=== PATIENT | female | born 1975 | race Caucasian/White ===

== ENCOUNTER 2016-10-30 23:27 | Emergency (ER) | payer MEDICAID ==
[2016-10-30 23:40] VITALS: RESP 16
--- NOTE | 2016-10-31 00:03 | EDPHY ---
H & P Stated Complaint: syncopal episode at [employer] concert Time Seen by Provider: 10/30/16 23:47 HPI/ROS: HPI The patient presents with episode of ALOC which occurred just prior to arrival while she was at a rock concert. She has been traveling extensively over the last 5 days, attending many concert. Today she flew here from [place]. She has not eaten much today. She has been drinking alcohol and smoking marijuana. She was dancing outside in 80 degree heat. She was sitting down drinking some water when she gets began to feel lightheaded and lost consciousness. Her friends noticed that she shook a bit while she was unconscious. This lasted for about 2 minutes, afterwards she was "out of it" for few minutes. She was able to walk up 50 stairs 2 the medical tent were she continued to feel dizzy and thus she came in. She describes the dizziness as lightheadedness. She has not had any palpitations, chest pain, shortness of breath. She does have prior history of syncope. REVIEW OF SYSTEMS Constitutional: No fever, no chills. Eyes: No discharge. ENT: No sore throat. Cardiovascular: No chest pain, no palpitations. Respiratory: No cough, no shortness of breath. Gastrointestinal: No abdominal pain, no vomiting. Genitourinary: No hematuria. Musculoskeletal: No back pain. Skin: No rashes. Neurological: No headache. PMHx: Hypothyroidism Soc Hx: Visiting from out of town, alcohol use, marijuana use PHYSICAL General Appearance: Alert, no distress Eyes: Pupils equal and round no pallor or injection ENT, Mouth: Mucous membranes moist Respiratory: There are no retractions, lungs are clear to auscultation Cardiovascular: Regular rate and rhythm Gastrointestinal: Abdomen is soft and non-tender, no masses, bowel sounds normal Neurological: A&O, moves all extremities Skin: Warm and dry, no rashes Musculoskeletal: Neck is supple non tender Extremities: symmetrical, full range of motion Psychiatric: Patient is oriented X 3, there is no agitation Source: Patient, EMS, Other Exam Limitations: No limitations - Personal History LMP (Females 10-55): 22-28 Days Ago Current Tetanus/Diphtheria Vaccine: Unsure Current Tetanus Diphtheria and Acellular Pertussis (TDAP): Unsure - Medical/Surgical History Hx Asthma: No Hx Chronic Respiratory Disease: No Hx Diabetes: No Hx Cardiac Disease: No Hx Renal Disease: No Hx Cirrhosis: No Hx Alcoholism: No Hx HIV/AIDS: No Hx Splenectomy or Spleen Trauma: No Other PMH: hypothyroid - Social History Smoking Status: Never smoked Constitutional: Initial Vital Signs Temperature (C) 36.8 C 10/30/16 23:38 Heart Rate 91 10/30/16 23:38 Respiratory Rate 16 10/30/16 23:38 Blood Pressure 118/67 10/30/16 23:38 O2 Sat (%) 95 10/30/16 23:38 O2 Delivery Mode Room Air Allergies/Adverse Reactions: metoclopramide [From Reglan] Allergy (Verified 10/30/16 23:40) Penicillins Allergy (Verified 10/30/16 23:40) promethazine [From Phenergan] Allergy (Verified 10/30/16 23:40) Home Medications: Medication Instructions Recorded Levothyroxine 10/30/16 Sulfamethox/Tmp 800/160 mg 1 tab PO BID #14 tab 10/31/16 [Bactrim Ds] Medical Decision Making - Diagnostics EKG Interpretation: EKG: Complete interpretation has been separately recorded in the [facility] archive. Summary impression: Normal sinus rhythm, normal intervals Differential Diagnosis: This is a 40-year-old female who has history of hypothyroidism who presents brought in by ambulance for an episode of ALOC which occurred just prior to arrival. She has not been eating or drinking well, has been drinking alcohol, smoking marijuana. On exam, she is well-appearing, she does not have any cardiac murmur. Her vital signs are stable. Differential diagnosis includes syncope, less likely seizure given no tongue biting or incontinence, dehydration , less likely pulmonary embolism given no chest pain, shortness of breath, abnormal vital signs. In the emergency room EKG was obtained and was unremarkable. She was able to tolerate p.o. without difficulty. The patient was also able to ambulate with a steady gait. On her way out, she began to develop left ear pain. She has a history of recurrent urine infections. On exam she does have preauricular lymphadenopathy and her canal is erythematous. I will prescribe her Bactrim, as she has received this before for ear infections because of her penicillin allergy. - Data Points Medications Given: Discontinued Medications Ondansetron HCl (Zofran Odt) 4 mg PO EDNOW ONE Stop: 10/31/16 00:39 Last Admin: 10/31/16 00:38 Dose: 4 mg Departure - Departure Disposition: Home, Routine, Self-Care Clinical Impression: Syncope Qualifiers: Syncope type: unspecified Qualified Code(s): R55 - Syncope and collapse Condition: Good Instructions: Syncope (ED) Additional Instructions: Please make sure to continue drinking plenty of fluids. You should return to the ER if your worse in any way. Referrals: ANDRÉS MUÑOZ [Other] - As per Instructions Prescriptions: Sulfamethox/Tmp 800/160 mg [Bactrim Ds] 1 tab PO BID #14 tab
--- NOTE | 2016-10-31 00:03 | CPEKG ---
Heart Rate: 88 RR Interval: 682 P-R Interval: 164 QRSD Interval: 74 QT Interval: 348 QTC Interval: 421 P Tobias: 46 QRS Tobias: 26 T Wave Tobias: 7 EKG Severity - NORMAL ECG - EKG Impression: SINUS RHYTHM Electronically Signed By: Afshan Starks 31-Oct-2016 07:06:54
[2016-10-31] MEDS ORDERED: ONDANSETRON DISINTEGRATING 4 MG TAB ONE (00:36)
[2016-10-31] MEDS ORDERED: ONDANSETRON DISINTEGRATING 4 MG TAB PO ONE (00:38)
[2016-10-31 01:11] VITALS: BP 125/81; PULSE 87; TEMP 98.6; O2SAT 96
== END 2016-10-31 01:10 | disposition home or self-care (01) ==
DX: R55 Syncope and collapse (principal)